=== PATIENT | male | born 1965 | race Caucasian/White ===

== ENCOUNTER 2018-09-10 16:50 | Emergency (ER) | payer OTHER ==
--- NOTE | 2018-09-10 18:00 | ED ---
Recheck HPI - General Chief Complaint: Recheck/Abnormal Lab/Rx Stated Complaint: needs dialysis Time Seen by Provider: 09/10/18 17:23 Source: patient Mode of arrival: ambulatory Limitations: no limitations - History of Present Illness Initial Comments: 52-year-old male patient with recent pneumonia requiring intubation with an extended hospital stay and subsequent renal failure with dialysis presents to the emergency department today requesting a dialysis treatment. Patient states he usually receives dialysis on a Saturday, Saturday, Saturday schedule and did miss Saturday and Saturday this week. Patient states he is currently feeling well. Patient states that his dialysis center is quite a drive and he is unable to afford gas money to get there. He is awaiting transfer of medical records to begin receiving dialysis in [facility]. He denies any chest pain, shortness of breath, dizziness, weakness, or swelling. States he is eating and drinking nor vickie. Patient denies any recent rash, fever, chills, abdominal pain, nausea, vomiting, diarrhea, constipation, back pain, numbness, tingling, hematuria, dysuria, urinary urgency, urinary frequency, headache, visual changes, or any other complaints. - Related Data Allergies Allergy/AdvReac Type Severity Reaction Status Date / Time No Known Allergies Allergy Verified 09/10/18 17:08 Review of Systems ROS Statement: Those systems with pertinent positive or pertinent negative responses have been documented in the HPI. ROS Other: All systems not noted in ROS Statement are negative. Past Medical History Past Medical History: Dialysis, Hypertension, Renal Disease History of Any Multi-Drug Resistant Organisms: None Reported Past Surgical History: No Surgical Hx Reported Past Psychological History: No Psychological Hx Reported Smoking Status: Current every day smoker Past Alcohol Use History: None Reported Past Drug Use History: None Reported General Exam Limitations: no limitations General appearance: alert, in no apparent distress, other (This is a well- developed, well-nourished adult male patient in no acute distress. Vital signs upon presentation are temperature 98.5F, pulse 100, respirations 16, blood pressure 163/106, pulse ox 99% on room air.) Eye exam: Present: normal appearance, PERRL, EOMI. Absent: scleral icterus, conjunctival injection, periorbital swelling Respiratory exam: Present: normal lung sounds bilaterally. Absent: respiratory distress, wheezes, rales, rhonchi, stridor Cardiovascular Exam: Present: regular rate, normal rhythm, normal heart sounds. Absent: systolic murmur, diastolic murmur, rubs, gallop, clicks GI/Abdominal exam: Present: soft, normal bowel sounds. Absent: distended, tenderness, guarding, rebound, rigid Neurological exam: Present: alert, oriented X3, CN II-XII intact Psychiatric exam: Present: normal affect, normal mood Skin exam: Present: warm, dry, intact, normal color. Absent: rash Course Vital Signs 09/10/18 09/10/18 09/10/18 17:04 18:00 19:35 Temperature 98.5 F Pulse Rate 100 87 Respiratory 16 18 18 Rate Blood Pressure 163/106 140/107 O2 Sat by Pulse 99 98 Oximetry 09/10/18 19:43 Temperature 98.6 F Pulse Rate 86 Respiratory 18 Rate Blood Pressure 141/93 O2 Sat by Pulse 97 Oximetry Medical Decision Making - Medical Decision Making 52-year-old male patient presents to emergency department today requesting dialysis treatment. Patient missed his Saturday and Saturday appointments for dialysis due to transportation issues. Physical examination is unremarkable. Patient does report that he feels well. Labs reviewed and did reveal elevated BUN and creatinine however electrolyzes within normal range. Patient does not require emergent dialysis at this time. We discharged home to follow-up with his chamber walker for recheck as soon as possible. Return parameters were discussed in detail. He verbalizes understanding and agrees with this plan. - Lab Data Result diagrams: 09/10/18 18:00 09/10/18 18:00 Lab Results 09/10/18 09/10/18 Range/Units 18:00 18:00 WBC 9.1 (3.8-10.6) k/uL RBC 4.17 L (4.30-5.90) m/uL Hgb 11.7 L (13.0-17.5) gm/dL Hct 38.4 L (39.0-53.0) % MCV 92.1 (80.0-100.0) fL MCH 28.1 (25.0-35.0) pg MCHC 30.5 L (31.0-37.0) g/dL RDW 14.7 (11.5-15.5) % Plt Count 329 (150-450) k/uL Neutrophils % 60 % Lymphocytes % 26 % Monocytes % 6 % Eosinophils % 6 % Basophils % 1 % Neutrophils # 5.4 (1.3-7.7) k/uL Lymphocytes # 2.3 (1.0-4.8) k/uL Monocytes # 0.5 (0-1.0) k/uL Eosinophils # 0.5 (0-0.7) k/uL Basophils # 0.1 (0-0.2) k/uL Hypochromasia Marked Sodium 141 (137-145) mmol/L Potassium 4.3 (3.5-5.1) mmol/L Chloride 107 (98-107) mmol/L Carbon Dioxide 23 (22-30) mmol/L Anion Gap 11 mmol/L BUN 28 H (9-20) mg/dL Creatinine 5.20 H (0.66-1.25) mg/dL Est GFR (CKD-EPI)AfAm 13 (>60 ml/min/1.73 sqM) Est GFR (CKD-EPI)NonAf 12 (>60 ml/min/1.73 sqM) Glucose 113 H (74-99) mg/dL Calcium 10.1 (8.4-10.2) mg/dL Phosphorus 4.4 (2.5-4.5) mg/dL Magnesium 1.9 (1.6-2.3) mg/dL Total Bilirubin 0.3 (0.2-1.3) mg/dL AST 12 L (17-59) U/L ALT 12 L (21-72) U/L Alkaline Phosphatase 61 (38-126) U/L Total Protein 7.1 (6.3-8.2) g/dL Albumin 3.9 (3.5-5.0) g/dL Disposition Clinical Impression: Feared condition not demonstrated Disposition: HOME SELF-CARE Condition: Good Instructions (If sedation given, give patient instructions): End Stage Kidney Disease (ED) Additional Instructions: Follow up for Dialysis as soon as possible. Return to the emergency department for any new, worsening, or concerning symptoms. Is patient prescribed a controlled substance at d/c from ED?: No Referrals: None,Stated [Primary Care Provider] - 1-2 days Time of Disposition: 19:20
[2018-09-10 18:05] VITALS: RESP 18
[2018-09-10 18:11] LABS: Basophils # (A) 0.1 k/uL (0-0.2); Basophils % (A) 1 %; Eosinophils # (A) 0.5 k/uL (0-0.7); Eosinophils % (A) 6 %; HCT 38.4 % (39.0-53.0); HGB 11.7 gm/dL (13.0-17.5); Hypochromasia Marked; Lymphocytes # (A) 2.3 k/uL (1.0-4.8); Lymphocytes % (A) 26 %; MCH 28.1 pg (25.0-35.0); MCHC 30.5 g/dL (31.0-37.0); MCV 92.1 fL (80.0-100.0); Mean Platelet Volume 6.9; Monocytes # (A) 0.5 k/uL (0-1.0); Monocytes % (A) 6 %; Neutrophils # (A) 5.4 k/uL (1.3-7.7); Neutrophils % (A) 60 %; Platelet Count 329 k/uL (150-450); RBC 4.17 m/uL (4.30-5.90); RDW 14.7 % (11.5-15.5); WBC 9.1 k/uL (3.8-10.6)
[2018-09-10 18:23] LABS: Albumin 3.9 g/dL (3.5-5.0); Calcium 10.1 mg/dL (8.4-10.2); Magnesium 1.9 mg/dL (1.6-2.3); Phosphorus 4.4 mg/dL (2.5-4.5); Potassium 4.3 mmol/L (3.5-5.1); Total Bilirubin 0.3 mg/dL (0.2-1.3); Total Protein 7.1 g/dL (6.3-8.2)
[2018-09-10] MEDS ORDERED: hydrALAZINE HCL 20 MG/ML 1 ML VIAL IVP STA (19:16)
[2018-09-10 19:45] VITALS: BP 141/93; PULSE 86; TEMP 98.6
== END 2018-09-10 19:42 | disposition home or self-care (01) ==
LOC: EC 16:50
DX: Z71.1 Person with feared health complaint in whom no diagnosis is made (principal); I12.9 Hypertensive chronic kidney disease with stage 1 through stage 4 chronic kidney disease, or unspecified chronic kidney disease; N18.9 Chronic kidney disease, unspecified; R79.89 Other specified abnormal findings of blood chemistry; F17.200 Nicotine dependence, unspecified, uncomplicated; Z99.2 Dependence on renal dialysis
CPT/HCPCS: 99283; 96374; 36415; 80053; 83735; 84100; 85025; J0360

== ENCOUNTER 2018-12-01 08:51 | Emergency (ER) | payer OTHER ==
[2018-12-01 09:04] VITALS: BP 147/97; PULSE 94; RESP 18; TEMP 98.1
--- NOTE | 2018-12-01 09:31 | ED ---
General Adult HPI - General Chief complaint: Recheck/Abnormal Lab/Rx Stated complaint: Dialysis issue Time Seen by Provider: 12/01/18 09:14 Source: patient, RN notes reviewed Mode of arrival: ambulatory Limitations: no limitations - History of Present Illness Initial comments: This a 53-year-old male presents emergency Department with chief complaint of dialysis catheter falling out. Patient states that he had a placed somewhere in July when he was in the hospital for extended period time. Patient states that he was doing dialysis as directed up until October he stopped going. Patient states she's had no dialysis he states that he woke up this morning and that his catheter was hanging out further than usual and states he bent over and it fell out. Patient states she has known pain he denies any symptoms. Patient states that is not exactly sure what causes renal failure other than he was placed in medical issues, for severe infection. Patient states he was in rehab facility after. Patient does not take any current medications. Patient denies headache, blurred vision, focal weakness, nausea, vomiting and diarrhea, constipation. - Related Data Home Medications Medication Instructions Recorded Confirmed No Known Home Medications 12/01/18 12/01/18 Allergies Allergy/AdvReac Type Severity Reaction Status Date / Time No Known Allergies Allergy Verified 12/01/18 09:30 Review of Systems ROS Statement: Those systems with pertinent positive or pertinent negative responses have been documented in the HPI. ROS Other: All systems not noted in ROS Statement are negative. Past Medical History Past Medical History: Dialysis, Hypertension, Renal Disease History of Any Multi-Drug Resistant Organisms: None Reported Past Surgical History: No Surgical Hx Reported Past Psychological History: No Psychological Hx Reported Smoking Status: Current every day smoker Past Alcohol Use History: None Reported Past Drug Use History: None Reported General Exam Limitations: no limitations General appearance: alert, in no apparent distress Head exam: Present: atraumatic, normocephalic, normal inspection Neck exam: Present: normal inspection. Absent: tenderness, meningismus, lymphadenopathy Respiratory exam: Present: normal lung sounds bilaterally, other (There is mild swelling at the site of the catheter). Absent: respiratory distress, wheezes, rales, rhonchi, stridor Cardiovascular Exam: Present: regular rate, normal rhythm, normal heart sounds. Absent: systolic murmur, diastolic murmur, rubs, gallop, clicks Neurological exam: Present: alert, oriented X3, CN II-XII intact, reflexes normal. Absent: motor sensory deficit Skin exam: Present: warm, dry, intact, normal color. Absent: rash Course Vital Signs 12/01/18 08:56 Temperature 98.1 F Pulse Rate 94 Respiratory 18 Rate Blood Pressure 147/97 O2 Sat by Pulse 98 Oximetry Medical Decision Making - Medical Decision Making 53-year-old male presented for his dislodgment of dialysis catheter. Labs were obtained today shows creatinine of 2.79 with a GFR 25. Patient has chronic kidney disease he does not have hypokalemia are elevated phosphorus at this time. Patient has chronic kidney disease and does not require dialysis. He is advised to follow-up PCP and nephrology in 1-2 days and to return for any change in symptoms. - Lab Data Result diagrams: 12/01/18 09:35 12/01/18 09:35 Lab Results 12/01/18 12/01/18 12/01/18 Range/Units 09:35 09:35 09:35 WBC 9.4 (3.8-10.6) k/uL RBC 5.26 (4.30-5.90) m/uL Hgb 14.3 (13.0-17.5) gm/dL Hct 44.0 (39.0-53.0) % MCV 83.7 (80.0-100.0) fL MCH 27.1 (25.0-35.0) pg MCHC 32.4 (31.0-37.0) g/dL RDW 14.7 (11.5-15.5) % Plt Count 251 (150-450) k/uL Neutrophils % 60 % Lymphocytes % 27 % Monocytes % 6 % Eosinophils % 4 % Basophils % 1 % Neutrophils # 5.6 (1.3-7.7) k/uL Lymphocytes # 2.5 (1.0-4.8) k/uL Monocytes # 0.6 (0-1.0) k/uL Eosinophils # 0.4 (0-0.7) k/uL Basophils # 0.1 (0-0.2) k/uL Sodium 141 (137-145) mmol/L Potassium 4.0 (3.5-5.1) mmol/L Chloride 106 (98-107) mmol/L Carbon Dioxide 23 (22-30) mmol/L Anion Gap 12 mmol/L BUN 30 H (9-20) mg/dL Creatinine 2.79 H (0.66-1.25) mg/dL Est GFR (CKD-EPI)AfAm 28 (>60 ml/min/1.73 sqM) Est GFR (CKD-EPI)NonAf 25 (>60 ml/min/1.73 sqM) Glucose 91 (74-99) mg/dL Calcium 9.7 (8.4-10.2) mg/dL Phosphorus 4.2 (2.5-4.5) mg/dL Magnesium 2.3 (1.6-2.3) mg/dL Total Bilirubin 0.3 (0.2-1.3) mg/dL AST 13 L (17-59) U/L ALT 16 L (21-72) U/L Alkaline Phosphatase 57 (38-126) U/L Total Protein 7.3 (6.3-8.2) g/dL Albumin 4.3 (3.5-5.0) g/dL Lipase 133 (23-300) U/L Urine Color Yellow Urine Appearance Clear (Clear) Urine pH 5.0 (5.0-8.0) Ur Specific Aston 1.013 (1.001-1.035) Urine Protein 1+ H (Negative) Urine Glucose (UA) Negative (Negative) Urine Ketones Negative (Negative) Urine Blood Small H (Negative) Urine Nitrite Negative (Negative) Urine Bilirubin Negative (Negative) Urine Urobilinogen <2.0 (<2.0) mg/dL Ur Leukocyte Esterase Negative (Negative) Urine RBC 4 (0-5) /hpf Urine WBC <1 (0-5) /hpf Urine Mucus Rare H (None) /hpf Disposition Clinical Impression: Chronic kidney disease, Vascular catheter dysfunction Disposition: HOME SELF-CARE Condition: Stable Instructions (If sedation given, give patient instructions): Chronic Kidney Disease (ED) Additional Instructions: Please return to the Emergency Department if symptoms worsen or any other concerns. Is patient prescribed a controlled substance at d/c from ED?: No Referrals: None,Stated [Primary Care Provider] - 1-2 days Time of Disposition: 10:33
--- NOTE | 2018-12-01 09:56 | XR ---
EXAMINATION TYPE: XR chest 2V DATE OF EXAM: 12/01/2018 COMPARISON: NONE HISTORY: Dialysis catheter discontinued, pain TECHNIQUE: Frontal and lateral views of the chest are obtained. FINDINGS: There is no focal air space opacity, pleural effusion, or pneumothorax seen. The cardiac silhouette size is within normal limits. There are prominent lung volumes with flattening the hemidia phragms, possible underlying COPD. The osseous structures are intact. IMPRESSION: No acute cardiopulmonary process.
[2018-12-01 09:57] LABS: Basophils # (A) 0.1 k/uL (0-0.2); Basophils % (A) 1 %; Eosinophils # (A) 0.4 k/uL (0-0.7); Eosinophils % (A) 4 %; HGB 14.3 gm/dL (13.0-17.5); Lymphocytes # (A) 2.5 k/uL (1.0-4.8); Lymphocytes % (A) 27 %; MCH 27.1 pg (25.0-35.0); MCHC 32.4 g/dL (31.0-37.0); MCV 83.7 fL (80.0-100.0); Mean Platelet Volume 7.8; Monocytes # (A) 0.6 k/uL (0-1.0); Monocytes % (A) 6 %; Neutrophils # (A) 5.6 k/uL (1.3-7.7); Neutrophils % (A) 60 %; Platelet Count 251 k/uL (150-450); RBC 5.26 m/uL (4.30-5.90); RDW 14.7 % (11.5-15.5); WBC 9.4 k/uL (3.8-10.6)
[2018-12-01 10:13] LABS: Albumin 4.3 g/dL (3.5-5.0); Calcium 9.7 mg/dL (8.4-10.2); Magnesium 2.3 mg/dL (1.6-2.3); Phosphorus 4.2 mg/dL (2.5-4.5); Total Bilirubin 0.3 mg/dL (0.2-1.3); Total Protein 7.3 g/dL (6.3-8.2)
[2018-12-01 10:22] LABS: Appearance,Urine Clear (Clear); Bilirubin,Urine Negative (Negative); Blood,Urine Small (Negative); Color,Urine Yellow; Glucose,Urine (UA) Negative (Negative); Ketones,Urine Negative (Negative); Leukocyte Esterase,Urine Negative (Negative); Mucus,Urine Rare /hpf; Nitrite,Urine Negative (Negative); Protein,Urine 1+ (Negative); RBC,Urine 4 /hpf (0-5); Specific Gravity,Urine 1.013 (1.001-1.035); Urobilinogen,Urine <2.0 mg/dL (<2.0)
== END 2018-12-01 10:43 | disposition home or self-care (01) ==
LOC: EC 08:51
DX: T82.49XA Other complication of vascular dialysis catheter, initial encounter (principal); N18.9 Chronic kidney disease, unspecified; I12.9 Hypertensive chronic kidney disease with stage 1 through stage 4 chronic kidney disease, or unspecified chronic kidney disease; F17.200 Nicotine dependence, unspecified, uncomplicated
CPT/HCPCS: 36415; 71046; 80053; 81001; 83690; 83735; 84100; 85025; 99283